=== PATIENT | female | born 1990 | race Caucasian/White ===

== ENCOUNTER → 2021-03-08 | Outpatient (CLI) | payer OTHER ==
--- NOTE | 2021-03-08 10:13 | REP ---
INDICATION: ANATOMY. Low transverse uterine scar from previous section. SABAS 25 July 2021. COMPARISON: None. TECHNIQUE: Transabdominal obstetric sonography. FINDINGS: Scanning through the gravid uterus demonstrates a viable single intrauterine gestation in variable lie. motion is observed and heart rate is recorded at 142 beats per minute. A anterior placenta is seen, grade 1, without evidence of placenta previa. Closed cervical length is measured at 3.2 cm transabdominally. No extrauterine abnormality is observed. Amniotic fluid is subjectively normal. Cervix and lower uterine segment are unremarkable on provided images. No anomaly is seen. The following anatomic structures are identified and felt to be sonographically unremarkable: cranium, choroid plexus, cavum, cerebellum and posterior fossa, face and profile, lungs, diaphragm, left-sided stomach, abdominal wall cord insertion, three-vessel umbilical cord, kidneys and bladder, spine, and upper and lower extremities. Four-chamber heart and outflow tract views were less than optimally visualized due to position. Biometry chart: BPD 4.6 cm, 20 weeks 0 days Head circumference 17.9 cm, 20 weeks 2 days Abdominal circumference 15.3 cm, 20 weeks 3 days Femur length 3.2 cm, 20 weeks 1 day Humeral length 3.2 cm, 20 weeks 5 days HC AC ratio normal 1.17 Cephalic index normal 0.71 Estimated weight 344 g, 0 lb 12 oz, 54th percentile for 20 weeks 1 day IMPRESSION: Viable single intrauterine gestation at 20 weeks 2 days by today's composite sonographic criteria. SABAS by today's sonography July 24, 2021. No complication identified. Expected gestational age estimate based on known SABAS July 25, 2021 is 20 weeks 1 day. cardiac structures less than optimally seen. <Electronically signed by Hal Castaneda > 03/08/21 3111
== END ==
LOC: M WHC 08:03
PROVIDERS: ATTEND Advanced Practice Midwife
DX: O34.211 Maternal care for low transverse scar from previous cesarean delivery (principal); Z3A.20 20 weeks gestation of pregnancy

== ENCOUNTER → 2021-04-18 | Outpatient (REF) | payer BC ==
[2021-04-18 14:31] LABS: HEMATOCRIT 37.6 % (36.0-47.0); MEAN CORPUSCULAR HEMOGLOBIN 29.2 pg (27.0-33.0); MEAN CORPUSCULAR HGB CONC 31.9 g/dl (32.0-36.5); MEAN CORPUSCULAR VOLUME 91.5 fl (80.0-96.0); PLATELET COUNT, AUTOMATED 240 10^3/uL (150-450); RED BLOOD COUNT 4.11 10^6/uL (4.00-5.40); WHITE BLOOD COUNT 9.9 10^3/uL (4.0-10.0)
== END ==
LOC: M PLALAB 10:18
PROVIDERS: ATTEND Advanced Practice Midwife
DX: O34.219 Maternal care for unspecified type scar from previous cesarean delivery (principal)

== ENCOUNTER → 2021-06-27 | Outpatient (REF) | payer OTHER | LOC: M SFHCWAGY 13:02 | PROVIDERS: ATTEND Advanced Practice Midwife | DX: O34.219 Maternal care for unspecified type scar from previous cesarean delivery (principal); Z3A.00 Weeks of gestation of pregnancy not specified ==